=== PATIENT | female | born 1960 | race Caucasian/White ===

== ENCOUNTER 2024-07-16 20:14 | Emergency (ER) | payer OTHER, SELFPAY ==
[2024-07-16 20:17] VITALS: BP 154/109
[2024-07-16 20:33] LABS: % Basophils 0.5 % (0-2); % Eosinophils 0.6 % (0-6); % Immature Granulocytes 0.4 % (0-0.5); % Monocytes 7.2 % (1.7-9.3); % Neutrophils 75.3 % (42.2-75.2); Absolute Basophils 0.1 10^3/uL (0-0.2); Absolute Eosinophils 0.1 10^3/uL (0-0.7); Absolute Immature Granulocytes 0.1 10^3/uL (0-0.05); Absolute Lymphocytes 2.3 10^3/uL (1.2-3.4); Absolute Neutrophils 10.8 10^3/uL (1.4-6.5); Hematocrit 43.2 % (37.0-47.0); Hemoglobin 14.1 g/dL (12.0-16.0); Mean Corp Hgb Conc. 32.6 g/dL (33.0-37.0); Mean Corpuscular Hgb 28.3 pg (27.0-31.0); Mean Corpuscular Volume 86.7 fL (81.0-99.0); Mean Platelet Volume 9.7 fL (7.4-10.4); Nucleated Red Blood Cells % 0 %; Platelet Count 293 10^3/uL (130-400); Red Blood Cell Count 4.98 10^6/uL (4.20-5.40); White Blood Cell Count 14.4 10^3/uL (4.8-10.8)
[2024-07-16 20:56] LABS: ALT (SGPT) 18 U/L (0-35); AST (SGOT) 22 U/L (14-36); Albumin 4.6 g/dl (3.5-5.0); Alkaline Phosphatase 76 U/L (38-126); Blood Urea Nitrogen 19 mg/dl (7-17); Calcium 9.7 mg/dl (8.4-10.2); Carbon Dioxide 28 mmol/L (22-30); Chloride 97 mmol/L (98-107); Glucose 102 mg/dl (70-99); Potassium 4.3 mmol/L (3.5-5.1); Sodium 135 mmol/L (135-145); Total Bilirubin 0.5 mg/dl (0.2-1.3); Total Protein 7.7 g/dl (6.3-8.2); eGFR > 60.00
[2024-07-16 21:27] LABS: TSH Reflex To Free T4 2.61 uIU/ml (0.47-4.68)
--- NOTE | 2024-07-16 23:55 | ED.GENMED ---
History of Present Illness
General
Chief Complaint: Weakness
Source: patient
Exam Limitations: none
Time Seen by Provider: 07/16/24 23:21
Nursing documentation reviewed up to this point in time: agreed with
History of Present Illness
History of Present Illness:
61-year-old female presents with fatigue sinus congestion tickly throat for a few weeks she been off her thyroid meds seen at an urgent care TSH was elevated, followed up there today sent to the ER for evaluation no chills did vomit x 2 over the
past few weeks, has been back on her thyroid meds, has an appoint with her PCP in a few week
Past History
Past History
ED Past Medical History: Other (Hypothyroid autoimmune)
ED Past Surgical History: Other (Breast surgery)
Social History
Tobacco: Non-smoker
Alcohol: None
Drug: None
Personal:
Living: with family
Employment: Employed
Review of Systems
Review of Systems
All Other Systems: Not applicable
Constitutional: Reports fatigue; Denies fever
EENT: Reports sore throat, runny nose and other (Sinus)
Respiratory: Reports cough
ABD/GI: Reports vomiting
Musculoskeletal: Reports no symptoms
Skin: Reports no symptoms
Neurological: Reports weakness
Endocrine: Reports no symptoms
Phy Exam
Physical Exam
Physical Exam:
Physical Exam
General: no apparent distress, not acutely ill
Neck: Posterior pharynx is clear slight rhinorrhea
Heart: s1/s2 regular rate and rhythm, no murmur. equal radial pulses.
Lungs: no acute respiratory distress. clear bilaterally
Abdomen: Nontender
Neuro: alert and oriented. no focal neurological deficits
Skin: no rash
Psychiatric: well kept. interactive and cooperative
Extremities: no edema. no calf tenderness.
Course
Orders/Labs/Results
Orders:
Orders
07/16/24 20:28
Complete Blood Count/With Diff Urgent
Comprehensive Metabolic Panel Urgent
TSH Reflex To Free T4 Urgent
07/16/24 23:52
Azithromycin [Zithromax] 500 mg PO NOW STA
Abnormal Lab Results
07/16/24
20:28
WBC 14.4 H 10^3/uL
(4.8-10.8)
MCHC 32.6 L g/dL
(33.0-37.0)
Abs Immat Gran (auto) 0.1 H 10^3/uL
(0-0.05)
Absolute Neuts (auto) 10.8 H 10^3/uL
(1.4-6.5)
Absolute Monos (auto) 1.0 H 10^3/uL
(0.1-0.6)
Neutrophils % 75.3 H %
(42.2-75.2)
Lymphocytes % 16.0 L %
(20.5-51.1)
Chloride 97 L mmol/L
(98-107)
BUN 19 H mg/dl
(7-17)
Glucose 102 H mg/dl
(70-99)
07/16/24 20:28
07/16/24 20:28
Vital Signs
Initial and Last Documented VS:
Initial Vital Signs
Temp Pulse Resp BP Pulse Ox
98.8 F 90 18 154/109 98
07/16/24 20:17 07/16/24 20:17 07/16/24 20:17 07/16/24 20:17 07/16/24 20:17
Last Documented Vital Signs
Temp Pulse Resp BP Pulse Ox
98.8 F 90 20 154/109 98
07/16/24 20:17 07/16/24 20:17 07/16/24 23:50 07/16/24 20:17 07/16/24 20:17
MDM/Problems Addressed
Differential Diagnosis Includes:
Sinusitis viral syndrome hypothyroid
MDM/Problems Addressed:
Fatigue, thyroid
Chronic conditions affecting care:
Thyroid
Acute Exacerbation and/or Progression of Chronic Illness:
Thyroid autoimmune
*Pulse Oximetry
Patient hypoxic: no
*Critical Care Note
Total Time (30-74mins, 75-104mins- exclusive of procedures): Not Applicable
Update Note
Update Note:
Labs noted TSH reasonably well-controlled, reviewed with patient etiology of symptoms not entirely clear will treat for sinusitis encourage PCP follow-up
ED Attending Note
-
Portions of this chart may have been created with voice recognition software.� Occasional wrong word or��sound alike� substitutions may have occurred due to the inherent limitations of voice recognition software.
Discharge Plan
Departure
Patient Disposition: Home (Routine Discharge)
Date of Disposition: 07/16/24
Time of Disposition: 23:53
Patient with high blood pressure during this ER visit?: No
Condition: Good
Discharge Problem:
Sinusitis
Instructions: Sinusitis in adults
Prescriptions:
New
methylprednisolone [Medrol (John)] 4 mg tablets,dose pack
See Rx Instructions .ROUTE .COMPLEX Qty: 21 0RF
Rx Instructions:
for 6 days
azithromycin [Zithromax] 250 mg tablet
250 mg PO DAILY Qty: 4 0RF
Referrals:
Vicenta Martinez DO [Family Provider] -
Interventions
Interventions:
*Risk Screen - Suicide Last Done: 07/16/24 20:17
*General Assessment Last Done: 07/16/24 20:17
*Neglect/Abuse Screening Last Done: 07/16/24 20:17
ED- Fall Risk Assessment Last Done: 07/16/24 23:48
*ED COVID-19 Vaccine History Last Done: 07/16/24 20:17
ED- Cardiac Assessment Last Done: 07/16/24 23:48
ED- Neurological Assessment Last Done: 07/16/24 23:48
ED- Pulmonary Assessment Last Done: 07/16/24 23:48
Discharge Date and Time
Print Language: WELSH
[2024-07-17] MEDS: ZITHROMAX 500 MG PO (00:04)
[2024-07-17 00:10] VITALS: BP 147/84
== END 2024-07-17 00:17 | disposition home or self-care (01) ==
LOC: EMR 20:14
PROVIDERS: EMERGENCY PHYSICIAN Emergency Medicine; FAMILY PHYSICIAN Family Medicine
DX: J32.9 Chronic sinusitis, unspecified (principal); E03.9 Hypothyroidism, unspecified
CPT/HCPCS: 99283; 80053; 84443; 85025